=== PATIENT | male | born 1955 | race Caucasian/White ===

== ENCOUNTER 2016-09-07 22:45 | Emergency (ER) | payer OTHER ==
[~2016-09-07] VITALS: Ht 177.8 cm; Wt 118.0 kg
[~2016-09-07 22:45] MED LIST: ASPI81CH7 CHEW; METO-309 PO; SIMV10TA PO; VITA100064 PO
[2016-09-07 22:46] VITALS: BP 177/99; PULSE 74; RESP 16; TEMP 98; O2SAT 96
[2016-09-07] MEDS ORDERED: SODIUM CHLOR 0.9% 1000 ML INJ 1,000 ML IV SCH (23:20)
[2016-09-07] MEDS ORDERED: GLUCAGON 1 MG/ML VIAL IM ONE (23:30)
[2016-09-07] MEDS ORDERED: SODIUM CHLORIDE 0.9% FLUSH 5 ML FLUSH IVF PRN (23:30)
--- NOTE | 2016-09-07 23:53 | PD ---
HPI Chief Complaint: Chest Pain Time Seen by Provider: 23:36 Travel History International Travel<30 days: No Contact w/Intl Traveler<30days: No Traveled to known affect area: No History of Present Illness HPI The patient is 61 years old. He arrives to the ER approximately 4 hours after eating some barbecued food. He felt as though afebrile also stuck in his esophagus. He dry heaved a few times in part of the feet bolus was regurgitated. Since the ingestion he has been unable to tolerate his own secretions. After swallowing anything it is regurgitated within about 1 minute or so. He notes some clear secretions with pink discoloration over the last hour or so. He has no difficulty breathing. He reports similar events have occurred however they tend to resolve spontaneously. He has never undergone endoscopic procedure or retrieval of food bolus. He takes aspirin 325 mg daily and has a history of atrial fibrillation, hypertension and hyperlipidemia. PFSH Past Medical History Blood Disorders: No Heart Rhythm Problems: No Cancer: No Cardiac Catheterization: No Cardiovascular Problems: Yes (AFIB) High Cholesterol: Yes Congestive Heart Failure: No Diabetes: No Diminished Hearing: No Endocrine: No Genitourinary: No Hiatal Hernia: Yes (REPAIR DONE A TEENAGER) Heparin Induced Thrombocytopen: No Hypertension: Yes Immune Disorder: No Musculoskeletal: No Neurologic: No Psychiatric: No Reproductive: Yes (IMPOTENCE) Respiratory: No Immunizations Current: Yes Past Surgical History Abdominal Surgery: No AICD: No Arteriovenous Shunt: No Cardiac Surgery: No Coronary Artery Bypass Graft: No Ear Surgery: No Endocrine Surgery: No Eye Surgery: No Genitourinary Surgery: No Gynecologic Surgery: No Insulin Pump: No Joint Replacement: No Neurologic Surgery: No Oral Surgery: No Pacemaker: No Thoracic Surgery: No Other Surgery: Yes (HERNIA REPAIR) Social History Alcohol Use: Yes (2 GLASSES WINE/DAY) Tobacco Use: No Substance Use: No Allergies-Medications (Allergen,Severity, Reaction): Coded Allergies: No Known Allergies (Verified , 09/07/16) Reported Meds & Prescriptions Reported Meds & Active Scripts Active Lopressor (Metoprolol Tartrate) 50 Mg Tab 50 Mg PO Q12HR Aspirin Children's (Aspirin) 81 Mg Chew 325 Mg CHEW DAILY 30 Days Reported Vitamin D (Cholecalciferol) 1,000 Unit Tab 5,000 Units PO DAILY Simvastatin 10 Mg Tab 10 Mg PO DAILY Review of Systems Except as stated in HPI: all other systems reviewed are Neg Physical Exam Narrative GENERAL: 61-year-old male well-nourished well-developed mild to moderate distress SKIN: Warm and dry. HEAD: Atraumatic. Normocephalic. EYES: Pupils equal and round. No scleral icterus. No injection or drainage. ENT: No nasal bleeding or discharge. Mucous membranes pink and moist. NECK: Trachea midline. No JVD. CARDIOVASCULAR: Regular rate and rhythm. No murmur appreciated. RESPIRATORY: No accessory muscle use. Clear to auscultation. Breath sounds equal bilaterally. GASTROINTESTINAL: Abdomen soft, non-tender, nondistended. Hepatic and splenic margins not palpable. MUSCULOSKELETAL: No obvious deformities. No clubbing. No cyanosis. No edema. NEUROLOGICAL: Awake and alert. No obvious cranial nerve deficits. Motor grossly within normal limits. Normal speech. PSYCHIATRIC: Appropriate mood and affect; insight and judgment normal. Data Data Last Documented VS Vital Signs Date Time Temp Pulse Resp B/P Pulse Ox O2 Delivery O2 Flow Rate FiO2 09/07/16 22:59 95 18 09/07/16 22:46 98.0 177/99 96 Orders Iv Access Insert/Monitor (09/07/16 23:20) Ecg Monitoring (09/07/16 23:20) Oximetry (09/07/16 23:20) Sodium Chlor 0.9% 1000 Ml Inj (Ns 1000 M (09/07/16 23:20) Sodium Chloride 0.9% Flush (Ns Flush) (09/07/16 23:30) Glucagon Inj (Glucagon Inj) (09/07/16 23:30) ^ Consent (09/07/16 23:37) Diet Npo (09/08/16 Breakfast) MDM Medical Decision Making Medical Screen Exam Complete: Yes Emergency Medical Condition: Yes Medical Record Reviewed: Yes Differential Diagnosis Impacted food bolus, Jojo-[place] tear, esophageal stricture, esophageal dysmotility disorder Narrative Course The patient was given a sip of water. Within about 45 seconds or so he regurgitated the water. Since then he has had a few episodes of regurgitation, clear expectorant with some pink coloration. IM glucagon administered. Maintenance normal saline given. Case discussed with gastroenterology, Dr. Tamayo, who will take the patient for endoscopic retrieval of presumed impacted food bolus. Diagnosis Primary Impression: Food impaction of esophagus Qualified Code: T18.128A - Food impaction of esophagus, initial encounter Referrals: Licensed Surveyor 3 days Additional Instructions: You have a choice when it comes to health care, and we are glad that you chose [facility]. Hopefully, we have met your expectations on today's visit. You are welcome to return to [facility] at any time, as we are committed to meeting the health care needs of our community. Disposition: 01 DISCHARGE HOME Condition: Demetris Mcnulty MD Sep 07, 2016 23:52
[2016-09-08 00:24] VITALS: RESP 18; O2SAT 100
[2016-09-08] MEDS ORDERED: DO NOT ADM ANY ANTICOAGULANT DRUGS XX PRN (02:23)
[2016-09-08] MEDS ORDERED: PANT40TA3 PO (02:30)
[2016-09-08] MEDS ORDERED: PROPOFOL 200 MG/20 ML AMP IV ONE (02:44)
[2016-09-08 03:05] VITALS: BP 116/74; PULSE 95; RESP 16; TEMP 97.8; O2SAT 96
--- NOTE | 2016-09-08 13:11 | EKG ---
Date Performed: 09/07/2016 Time Performed: 23:00:33 PTAGE: 61 years EKG: Sinus rhythm WITH MARKED SINUS ARRHYTHMIA POSSIBLE LEFT ATRIAL ENLARGEMENT MODERATE ST DEPRESSION ABNORMAL ECG Co mpared to prior tracing no significant change PREVIOUS TRACING : 06/18/2016 02.43 DOCTOR: Mike Velasquez Interpretating Date/Time 09/08/2016 13:09:10
--- NOTE | 2016-09-08 18:54 | MB ---
cc: EMERALD LEON M.D. DATE OF CONSULTATION 09/08/2016 DATE OF [address] Godfrey[address] The patient was seen earlier this morning. The dictation line was not available so dictation is done now. HISTORY The patient is a 61-year-old gentleman who presented to emergency room with complaints of inability to swallow food for a few hours. He states that around 7 o'clock p.m. he was barbecuing and he ate pork meat. Since then he felt that the food got stuck in his distal esophagus and he is unable to swallow his saliva. Some of it he regurgitated but in spite of that he is still having difficulty swallowing. He does have history of difficulty swallowing on and off for a few years but most of the time these episodes resolve on their own. PAST MEDICAL HISTORY 1. He has atrial fibrillation. 2. High cholesterol. 3. Hiatal hernia repair as a teenager. 4. Hypertension. 5. Obesity. PAST SURGICAL HISTORY Hiatal hernia repair as a teenager. SOCIAL HISTORY Drinks two glasses of wine per day. Denies any smoking or drug use. ALLERGIES NO KNOWN ALLERGIES. MEDICATIONS At home: 1. Lopressor. 2. Aspirin. 3. Vitamin B. 4. Tylenol. PHYSICAL EXAMINATION GENERAL: On clinical exam he is sitting in bed in mild distress, unable to swallow his saliva. He keeps spitting it up. VITAL SIGNS: Temperature is 98, heart rate 74, respirations 16, blood pressure 177/99. HEENT: NALINI. NECK: No JVD. No lymphadenopathy. CHEST: Clear to auscultation and percussion. CARDIOVASCULAR: S1-S2. No murmur. ABDOMEN: Obese. Bowel sounds are present. MACERATOR OPERATOR: Awake, alert, oriented x3. No focal signs identified. IMPRESSION Mr. Bustillos is a 61-year-old gentleman who presented to the emergency room with acute esophageal obstruction secondary to food bolus impaction, needs emergent endoscopy. RECOMMENDATIONS Upper endoscopy will be scheduled with foreign body removal and possible dilatation if needed. Risks, benefits were discussed with the patient and he is agreeing with it. I would like to thank Dr. Godfrey for referring him to our office for consultation. Further recommendation will depend on the patient's clinical status and the above results. MD ALEX Pepe /5:02 PM /6:46 PM JAE
== END 2016-09-08 03:05 | disposition home or self-care (01) ==
LOC: NEPC 22:45
DX: T18.128A Food in esophagus causing other injury, initial encounter (principal); I48.91 Unspecified atrial fibrillation; I10 Essential (primary) hypertension
CPT/HCPCS: 00740; 43247; 93005; 96372; 99283; J1610; J3010; J7030